=== PATIENT | male | born 1955 | race Hispanic/Latino ===

== ENCOUNTER 2025-05-10 09:45 | Day surgery (SDC) | payer OTHER ==
[2025-05-10] VITALS (14 sets, daily range): BP systolic 111–141; BP diastolic 68–86; PULSE 50–77; RESP 15–18; TEMP 97.6–98.2
[~2025-05-10] VITALS: Ht 177.8 cm; Wt 95.3 kg
[2025-05-10] MEDS ORDERED: LISI10TA24 PO (10:49)
[2025-05-10] MEDS ORDERED: ATOR10 PO (10:49)
[2025-05-10] MEDS: 0.9%NACL 1000ML 1,000 ML IV ONE (10:55)
[2025-05-10] MEDS ORDERED: proPOFol 10 MG/ML 20ML VIAL IV ONE (12:52)
[2025-05-10] MEDS ORDERED: SUCCINYLCHOLINE CHLORIDE 20 MG/ML 10 ML VIAL ONE (12:52)
[2025-05-10] MEDS: INDOMETHACIN 100 MG SUPP.RECT RC ONE (13:08)
[2025-05-10] MEDS: cefTRIAXone 1G VIAL 1 GM ONE (13:34)
[2025-05-10] MEDS ORDERED: IOHEXOL-350 50ML VIAL IV ONE (13:37)
--- NOTE | 2025-05-10 14:40 | NUR ---
PT AND GIVEN VERBAL AND WRITTEN DISCHARGE INSTRUCTIONS. PT TAKEN OUT VIA WHEELCHAIR DRIVING
--- NOTE | 2025-05-10 14:53 | HMCIMG ---
Fluoroscopic guidance History: CALCULUS OF BILE DUCT WITHOUT CHOLANGITIS OR CHOLECYSTITIS Fluoroscopic guidance provided. Procedure by ordering physician in operating room suite with fluoroscopic guidance. Several spot images were obtained. Impression: Fluoroscopic guidance.
== END 2025-05-10 14:45 | disposition home or self-care (01) ==
LOC: DAH 09:45 → ENDO 09:45
PROVIDERS: ATTEND Internal Medicine Gastroenterology
DX: K80.51 Calculus of bile duct without cholangitis or cholecystitis with obstruction (principal); K83.9 Disease of biliary tract, unspecified; K83.8 Other specified diseases of biliary tract; R93.2 Abnormal findings on diagnostic imaging of liver and biliary tract; K83.2 Perforation of bile duct; I10 Essential (primary) hypertension; E11.9 Type 2 diabetes mellitus without complications; Z79.899 Other long term (current) drug therapy
CPT/HCPCS: 43276; 43264; 43273; 74330; J0330; J7030; J0696; J2704; Q9967; C1876; A4215 ×2; A4223; A4657; A7002; A4222; A4221; A4663; A4606; C1769; C1773; 74328; J3490

== ENCOUNTER 2025-07-26 08:48 | Day surgery (SDC) | payer OTHER ==
[~2025-07-26] VITALS: Ht 177.8 cm; Wt 99.8 kg
[2025-07-26] VITALS (13 sets, daily range): BP systolic 126–155; BP diastolic 75–84; PULSE 59–69; RESP 14–18; TEMP 97.3–99.1
[~2025-07-26 08:48] MED LIST: ATOR10 PO; LISI10TA24 PO
[2025-07-26] MEDS: 0.9%NACL 1000ML 1,000 ML IV ONE (09:22)
[2025-07-26] MEDS ORDERED: SUCCINYLCHOLINE CHLORIDE 20 MG/ML 10 ML VIAL ONE (10:58)
[2025-07-26] MEDS ORDERED: LIDOCAINE PF 100MG/5ML (2%) SYRINGE 5ML ONE (10:58)
[2025-07-26] MEDS: INDOMETHACIN 100 MG SUPP.RECT RC ONE (11:18)
[2025-07-26] MEDS ORDERED: IOHEXOL-350 50ML VIAL IV ONE (11:38)
--- NOTE | 2025-07-27 16:11 | HMCIMG ---
X-RAY BILIARY DUCT ENDOSCOPY HISTORY: CALCULUS OF BILE DUCT WITHOUT CHOLANGITIS OR CHOLECYSTITIS WITH OBSTRUCTION TECHNIQUE: X-RAY BILIARY DUCT ENDOSCOPY FINDINGS/IMPRESSION: Fluoroscopic image/s obtained for procedure documentation. Please see operative report for more details. Fluoroscopy time 587 seconds
== END 2025-07-26 13:00 | disposition home or self-care (01) ==
LOC: DAH 08:48 → ENDO 08:48
PROVIDERS: ATTEND Internal Medicine Gastroenterology
DX: K80.51 Calculus of bile duct without cholangitis or cholecystitis with obstruction (principal); K83.2 Perforation of bile duct; E66.01 Morbid (severe) obesity due to excess calories; Z68.33 Body mass index [BMI] 33.0-33.9, adult; Z79.899 Other long term (current) drug therapy
CPT/HCPCS: 43264; 82948 ×2; 74328; 43275; J0330; J7030; J2003; J2704; J2405; Q9967; C1769; C1773; J3490